=== PATIENT | female | born 1985 | race Caucasian/White ===

== ENCOUNTER 2016-09-09 15:47 | Emergency (ER) | payer OTHER ==
[~2016-09-09 15:47] MED LIST: IBUPROFEN400 MG PO; LO/OVRAL-281 TAB PO; NAPROSYN500 MG PO; VICODIN 5/500 T1 TAB PO
[2016-09-09] MEDS ORDERED: [UNRECOGNIZED DRUG - REMARK] (15:50)
== END 2016-09-09 16:43 | disposition home or self-care (01) ==
LOC: SED 15:47
DX: S60.571A Other superficial bite of hand of right hand, initial encounter (principal); W55.01XA Bitten by cat, initial encounter
CPT/HCPCS: 90471; 90715; 99283